=== PATIENT | female | born 1940 | race Caucasian/White ===

== ENCOUNTER → 2016-05-29 | Outpatient (CLI) | payer MEDICARE, OTHER ==
--- NOTE | 2016-05-29 16:04 | BD ---
EXAMINATION TYPE: MG DEXA axial skeleton. DATE OF EXAM: 05/29/2016 12:20 PM COMPARISON: NONE CLINICAL HISTORY: Postmenopausal female Height: 58.5 IN Weight: 145 LBS FRAX RISK QUESTIONS: Alcohol (3 or more units per day): NO Family History (Parent hip fracture): NO Glucocorticoids (More than 3mos): NO (Ex: prednisone, prednisolone, methylprednisolone, dexamethasone, and hydrocortisone). History of Fracture in Adulthood: NO Secondary Osteoporosis: 1. Type 1 Diabetes: NO 2. Hyperthyroidism: NO 3. Menopause before 45: NO 4. Malnutrition: NO 5. Chronic liver disease: NO Rheumatoid Arthritis: NO Current Tobacco Use: NO RISK FACTORS HISTORY OF: Active: YES Diet low in dairy products/other sources of calcium: YES Postmenopausal woman: AGE 49 Take estrogen and/or progesterone medications: NOT NOW How long: AGE 50 - 61 MEDICATIONS: Additional Medications: CALCIUM, VIT D, HIGH BLOOD PRESSURE MEDS, DIABETES MEDS, EXAM MEASUREMENTS: Bone mineral densitometry was performed using the [employer] System. Bone mineral density as measured about the Lumbar spine is: ----- L1-L4(G/cm2): 1.334 T Score Values are as follows: ----- L2: 2.0 ----- L3: 0.8 ----- L4: 0.7 ----- L1-L4: 1.3 Bone mineral density has: Decreased -0.1% since study of: 05/03/2014 Bone mineral density about the R hip (g/cm2): 0.977 Bone mineral density about the L hip (g/cm2): 0.991 T Score values are as follows: -----R Neck: -0.4 -----L Neck: -0.3 -----R Intertrochanter: -0.2 -----L Intertrochanter: 0.3 Bone mineral density has: Decreased -2.4% since study of: 05/03/2014 IMPRESSION: Normal (Values between +1 and -1 indicate normal bone mass) NOTE: T-SCORE=SD OF THE YOUNG ADULT MEAN.
--- NOTE | 2016-05-31 12:27 | MM ---
Reason for exam: screening (asymptomatic). Last mammogram was performed 1 year ago. History: Patient is postmenopausal. Family history of premenopausal breast cancer in maternal cousin at age 35. Benign right mammotome panel of the right breast, February 14, 2007. Took estrogen for 12 years beginning at age 49. Physical Findings: A clinical breast exam by your physician is recommended on an annual basis and results should be correlated with mammographic findings. MG Screening Mammo w CAD Bilateral CC and MLO view(s) were taken. Prior study comparison: May 20, 2015, bilateral MG screening mammo w CAD. May 03, 2014, bilateral MG screening mammo w CAD. March 27, 2013, bilateral digital screening mammo w/CAD. There are scattered fibroglandular densities. Previous mammotome biopsy in the right breast. There is chronic nodularity in the left breast. Benign bilateral secretory calcifications. No significant changes when compared with prior studies. ASSESSMENT: Benign, BI-RAD 2 RECOMMENDATION: Routine screening mammogram of both breasts in 1 year.
== END | disposition home or self-care (01) ==
LOC: RADBDWWP 12:18
PROVIDERS: ATTEND Family Medicine
DX: Z12.31 Encounter for screening mammogram for malignant neoplasm of breast (principal); Z78.0 Asymptomatic menopausal state
CPT/HCPCS: 77080; G0202

== ENCOUNTER → 2018-07-25 | Outpatient (CLI) | payer MEDICARE, OTHER ==
--- NOTE | 2018-07-28 17:18 | BD ---
EXAMINATION TYPE: Axial Bone Density DATE OF EXAM: 07/25/2018 COMPARISON: 05/29/2016 CLINICAL HISTORY: 78-year-old female asymptomatic postmenopausal screening Height: 58 Weight: 144.1 FRAX RISK QUESTIONS: Alcohol (3 or more units per day): no Family History (Parent hip fracture): no Glucocorticoids (More than 3mos): no (Ex: prednisone, prednisolone, methylprednisolone, dexamethasone, and hydrocortisone). History of Fracture in Adulthood: no Secondary Osteoporosis: 1. Type 1 Diabetes: no 2. Hyperthyroidism: no 3. Menopause before 45: no 4. Malnutrition: no 5. Chronic liver disease: no Rheumatoid Arthritis: no Current Tobacco Use: no RISK FACTORS HISTORY OF: Family History of Osteoporosis: no Active: yes Diet low in dairy products/other sources of calcium: no Postmenopausal woman: age 49 Lost more than 2 inches in height since high school: yes MEDICATIONS: metformin, enalapril, amlodipine, bisoprolol Additional History: EXAM MEASUREMENTS: Bone mineral densitometry was performed using the [employer] System. Bone mineral density as measured about the Lumbar spine is: ----- L1-L4(G/cm2): 1.400 T Score Values are as follows: ----- L2: 2.5 ----- L3: 1.2 ----- L4: 1.7 ----- L1-L4: 1.8 Bone mineral density has: increased 5.5 % since study of: 05.29.2016 Bone mineral density about the R hip (g/cm2): 1.031 Bone mineral density about the L hip (g/cm2): 1.013 T Score values are as follows: -----R Neck: 0.0 -----L Neck: -0.2 -----R Total: 1.0 -----L Total: 0.9 Bone mineral density has: increased 4.3 % since study of: 05.29.2016 IMPRESSION: Normal (Values between +1 and -1 indicate normal bone mass). Consider repeating this study in 5 year s or sooner if there is some new clinical indication. NOTE: T-SCORE=SD OF THE YOUNG ADULT MEAN.
--- NOTE | 2018-07-29 13:19 | MM ---
Reason for exam: screening (asymptomatic). Last mammogram was performed 2 years and 2 months ago. History: Patient is postmenopausal. Family history of premenopausal breast cancer in maternal cousin at age 35. Benign right mammotome panel of the right breast, February 14, 2007. Took estrogen for 12 years beginning at age 49. Physical Findings: A clinical breast exam by your physician is recommended on an annual basis and results should be correlated with mammographic findings. MG Screening Mammo w CAD Bilateral CC and MLO view(s) were taken. Prior study comparison: May 31, 2016, bilateral MG screening mammo w CAD. May 20, 2015, bilateral MG screening mammo w CAD. There are scattered fibroglandular densities. Previous mammotome biopsy in the right breast. There is chronic nodularity in the left breast. Bilateral benign secretory calcifications. No significant changes when compared with prior studies. ASSESSMENT: Benign, BI-RAD 2 RECOMMENDATION: Routine screening mammogram of both breasts in 1 year.
== END | disposition home or self-care (01) ==
LOC: RADMAMWWP 13:28
PROVIDERS: ATTEND Family Medicine
DX: Z12.31 Encounter for screening mammogram for malignant neoplasm of breast (principal); M89.9 Disorder of bone, unspecified; Z78.0 Asymptomatic menopausal state
CPT/HCPCS: 77067; 77080

== ENCOUNTER → 2021-01-17 | Outpatient (CLI) | payer MEDICARE, OTHER ==
--- NOTE | 2021-01-17 09:28 | US ---
EXAMINATION TYPE: US abdomen complete DATE OF EXAM: 01/17/2021 COMPARISON: NONE CLINICAL HISTORY: 81-year-old female E80.6 Other disorders of bilirubin metabolism. TECHNIQUE: Multiple sonographic images of the abdomen are obtained. FINDINGS: EXAM MEASUREMENTS: Liver Length: 12.3 cm Gallbladder Wall: 0.2 cm CBD: 1.4 cm Spleen: 11.8 cm Right Kidney: 10.0 x 4.3 x 4.1 cm Left Kidney: 7.6 x 3.8 x 4.2 cm Pancreas: Suboptimal visualization of the pancreatic tail due to shadowing from bowel gas. Liver: dilated intrahepatic ducts Gallbladder: distended at 12.4 cm, no stones seen Evidence for sonographic Dietrich's sign: No CBD: dilated at 1.4 cm Spleen: echogenic focus measuring 0.7 x 0.6 x 0.6 cm, probable calcification versus small hemangioma . Benign etiology is suggested. Right Kidney: No hydronephrosis or masses seen Left Kidney: No hydronephrosis or masses seen, lobular contour. Upper IVC: wnl Abd Aorta: wnl IMPRESSION: Dilated bile duct up to 1.4 cm. Some intrahepatic biliary ductal dilatation is also present as well a s hydropic gallbladder change. Unable to exclude distal bile duct obstruction or ampullary stenosis. Correlate with alkaline phosphatase and bilirubin levels.
== END | disposition home or self-care (01) ==
LOC: RADUSWWP 08:37
PROVIDERS: ATTEND Family Medicine
DX: E80.6 Other disorders of bilirubin metabolism (principal)
CPT/HCPCS: 76700

== ENCOUNTER → 2021-02-24 | Outpatient (CLI) | payer MEDICARE, OTHER ==
--- NOTE | 2021-02-24 13:29 | MR ---
"EXAMINATION TYPE: MR abdomen wo/w con DATE OF EXAM: 02/24/2021 COMPARISON: Ultrasound abdomen January 17, 2021 HISTORY: Abnormal ultrasound and labs. CBD obstruction. CONTRAST: Standard multiplanar, multisequence MRI departmental protocol images were obtained without contrast a nd with 5 mL intravenous Gadavist gadolinium contrast. Imaging performed of the abdomen. Imaging per formed of the abdomen focusing on the liver. FINDINGS: Liver: Liver remains normal in size. No concerning solid or cystic intrahepatic mass identified. Mode rate extrahepatic and intrahepatic biliary dilatation remains present. Gallbladder has distended rafael ins with mild wall thickening focally along the posterior aspect axial image 10 series 1001. Suspect tiny 3 mm gallstone at this level image 11. There is an obstructing 10 mm calculus seen coronal image 13 series 401 and the duodenal ampulla. Common bile duct dilated up to 18 mm Other: Pancreas appears within normal limits. No pancreatic ductal dilatation. Lung bases are clear. Spleen measures upper limits of normal in size at 14.0 cm axial image 29. There is 1.4 cm adjacent sp lenule laterally axial image 55 1501. Some asymmetric diminished size and cortical thinning to the le ft kidney. Finding correlates with recent ultrasound. No abnormal bowel dilatation. No intra-abdomina l ascites. Underlying scoliotic curvature in the spine with multilevel spurring and disc space narrow ing. IMPRESSION: There is a 10 mm calculus in the distal CBD at the level of the duodenal ampulla causing moderate extrahepatic and central intrahepatic biliary dilatation and gallbladder distention. Conside r ERCP for further evaluation and treatment. A Yellow level critical message alert has been initiated for Germán Hamm MD via the [employer] 0 | Critical Results System on 02/24/2021 1:26 PM. This message alert has been sent to Germán Hamm MD via the preferences provided by the clinician for the receipt of Radiology Critical Findings. Dc [employer] ID [id number]."
== END | disposition home or self-care (01) ==
LOC: RADMRIMAIN 11:51
PROVIDERS: ATTEND Family Medicine
DX: K80.50 Calculus of bile duct without cholangitis or cholecystitis without obstruction (principal)
CPT/HCPCS: 74183; A9585

== ENCOUNTER → 2021-03-09 | Outpatient (CLI) | payer MEDICARE, OTHER ==
[2021-03-09 19:01] LABS: Basophils # (A) 0.08 X 10*3/uL (0.00-0.10); Basophils % (A) 1.2 %; Eosinophils # (A) 0.02 X 10*3/uL (0.04-0.35); Eosinophils % (A) 0.3 %; HCT 38.1 % (37.2-46.3); Lymphocytes # (A) 0.73 X 10*3/uL (0.90-5.00); Lymphocytes % (A) 10.9 %; MCH 31.4 pg (27.0-32.0); MCHC 31.5 g/dL (32.0-37.0); MCV 99.7 fL (80.0-97.0); Mean Platelet Volume 11.9 fL (9.5-12.2); Monocytes # (A) 0.69 X 10*3/uL (0.20-1.00); Monocytes % (A) 10.3 %; Neutrophils # (A) 5.14 X 10*3/uL (1.80-7.70); Neutrophils % (A) 76.7 %; Platelet Count 194 X 10*3/uL (140-440); RBC 3.82 X 10*6/uL (4.10-5.20); RDW 13.4 % (11.5-14.5)
[2021-03-09 19:34] LABS: INR 1.14 (0.90-1.11); Prothrombin Time 12.8 sec (9.9-11.9)
[2021-03-09 21:17] LABS: African American GFR (CKD) 60.8 (60.0-200.0); Albumin/Globulin Ratio 1.43 (1.60-3.17); Anion Gap 15.1 mmol/L (10.00-18.00); BUN/Creat Ratio 16.4 Ratio (12.00-20.00); Blood Urea Nitrogen 16.4 mg/dL (9.0-27.0); Carbon Dioxide 22.9 mmol/L (20.0-27.5); Globulin 2.8 g/dL (1.6-3.3); Non-African American GFR(CKD) 52.4 (60.0-200.0); Potassium 3.5 mmol/L (3.5-5.5); Total Bilirubin 5.6 mg/dL (0.30-1.20); Total Protein 6.8 g/dL (6.2-8.2)
== END | disposition home or self-care (01) ==
LOC: LABWHC1 11:10
PROVIDERS: ATTEND Internal Medicine Gastroenterology
DX: K83.1 Obstruction of bile duct (principal)
CPT/HCPCS: 36415; 80053; 85025; 85610

== ENCOUNTER 2021-03-17 08:49 | Day surgery (SDC) | payer MEDICARE, OTHER ==
[2021-03-15 11:41] VITALS: BMI 24.6
[2021-03-17] MEDS ORDERED: LACTATED RINGERS 1,000 ML IV SCH (09:11)
[2021-03-17 09:26] VITALS: TEMP 97.2
[2021-03-17] MEDS ORDERED: LACTATED RINGERS 1,000 ML IV ONE (09:26)
[2021-03-17 09:42] LABS: Glucose,Whole Blood 169 mg/dL (75-99)
[2021-03-17 09:58] LABS: Basophils % (A) 0 %; Eosinophils % (A) 0 %; HCT 40.3 % (34.0-46.0); HGB 13.2 gm/dL (11.4-16.0); Lymphocytes # (A) 0.3 k/uL (1.0-4.8); Lymphocytes % (A) 2 %; MCH 32.7 pg (25.0-35.0); MCHC 32.6 g/dL (31.0-37.0); Mean Platelet Volume 8.4; Monocytes # (A) 0.6 k/uL (0-1.0); Monocytes % (A) 4 %; Neutrophils # (A) 14.5 k/uL (1.3-7.7); Neutrophils % (A) 93 %; Platelet Count 203 k/uL (150-450); RBC 4.03 m/uL (3.80-5.40); RDW 13.9 % (11.5-15.5); WBC 15.6 k/uL (3.8-10.6)
[2021-03-17 10:12] LABS: Albumin 3.9 g/dL (3.5-5.0); Calcium 9.4 mg/dL (8.4-10.2); Potassium 3.5 mmol/L (3.5-5.1); Total Bilirubin 6.3 mg/dL (0.2-1.3); Total Protein 7.2 g/dL (6.3-8.2)
[2021-03-17] MEDS ORDERED: INDOMETHACIN 50MG SUPPOSITORY RECTAL ONE (10:40)
[2021-03-17] MEDS ORDERED: LEVOFLOXACIN 500MG-D5W PMX 500 MG in DEXTROSE/WATER 1 100ML.BAG IVPB ONE (10:40)
[2021-03-17 10:43] LABS: INR 1.4 (<1.2); Prothrombin Time 14.4 sec (9.0-12.0)
[2021-03-17] MEDS ORDERED: KETAMINE 10 MG/ML 20 ML VIAL ONE (12:02)
[2021-03-17] MEDS ORDERED: LIDOCAINE 1% INJ 10MG/ML (20 ML MDV) ONE (12:02)
[2021-03-17] MEDS ORDERED: GLYCOPYRROLATE 0.2 MG/ML 2 ML VIAL ONE (12:02)
[2021-03-17] MEDS ORDERED: PROPOFOL 10 MG/ML 20 ML VIAL IV ONE (12:02)
[2021-03-17] MEDS ORDERED: IOPAMIDOL-300 50ML BTL INJ ONE (12:33)
--- NOTE | 2021-03-17 12:41 | P.PCN ---
Date of Procedure: 03/17/21 Procedure(s) Performed: Brief history: Patient is a 81 year-old pleasant lady scheduled for an ERCP as part of evaluation of abdominal pain and elevated serum transaminases and jaundice for the last 4 weeks. She was noted to have bilirubin of 6.2 and elevated serum transaminases in the range of 200s. An MRI of the abdomen did show evidence of dilated intra-and extrahepatic biliary system with a 1 cm filling defect in the distal common bile duct. She is scheduled for an ERCP for CBD stone extraction. Procedure performed: ERCP with biliary sphincterotomy and balloon stone extraction Preoperative diagnoses: Obstructive jaundice/CBD stone IV sedation per anesthesia: Procedure: After informed consent was obtained from the patient and after the risks benefits and complications including bleeding perforation and pancreatitis explained in detail the patient was brought into the endoscopy unit. The patient was placed in prone position and IV conscious sedation was administered by anesthesia under continuous monitoring. The Olympus side-viewing duodenoscope was then inserted into the mouth and esophagus intubated without any difficulty. The scope was gradually advanced into the stomach and duodenum. The major papilla was identified without any difficulty. Initial cannulation resulted in the base of the pancreatic duct that appeared normal. Subsequent cannulation resulted in opacification of the common bile and appeared dilated measuring 1.5 cm in diameter. There was a 1 cm filling defect noted in the proximal common bile duct. There was mild intrahepatic biliary ductal dilation noted. At this time the catheter was exchanged over a guidewire with a biliary sphincterotome which was passed into the distal common bile duct. A biliary stent enterotomy was performed at 11 o'clock position and was extended to 1 cm in length. Following this 11.5 mm balloon was passed over the guidewire into the proximal CBD and was gently withdrawn and the CBD stone was extracted without any difficulty. Following the stone extraction there was some bleeding noted the stent enterotomy site which subsequently resolved. This maneuver was repeated 2 more times and no other stones were seen exiting the ampulla. An occlusion cholangio-was performed and no filling defects were seen. Patient tolerated the procedure well. Impression: 1. Normal appearing pancreatic duct 2. Dilated common bile duct measuring 1.5 cm in diameter with a 1 cm filling defect in the proximal CBD, status post biliary sphincterotomy followed by balloon stone extraction as described above Recommendations: The findings of this examination were discussed with the patient as well as a family. She'll be observed in the recovery for 2 hours and if she remains stable she'll be discharged , with outpatient follow-up in 2 weeks. She will be started on clear liquid diet.
--- NOTE | 2021-03-17 12:48 | FL ---
EXAMINATION TYPE: FL ERCP HISTORY: Fluoroscopy time Impression: 1. Fluoroscopy support provided to the referring physician.
[2021-03-17 13:05] VITALS: RESP 16
[2021-03-17 13:35] VITALS: BP 125/76; PULSE 96
== END 2021-03-17 14:00 | disposition home or self-care (01) ==
LOC: ORWHC2ENDO 08:49
PROVIDERS: ATTEND Internal Medicine Gastroenterology
DX: K80.50 Calculus of bile duct without cholangitis or cholecystitis without obstruction (principal); I10 Essential (primary) hypertension; E11.9 Type 2 diabetes mellitus without complications; Z79.899 Other long term (current) drug therapy; Z79.84 Long term (current) use of oral hypoglycemic drugs
CPT/HCPCS: 80053; 85025; 85610; 74330; 43264; 43262; J1956; J2001; J2704; Q9967

== ENCOUNTER → 2021-04-18 | Outpatient (CLI) | payer MEDICARE, OTHER ==
[2021-04-18 18:34] LABS: African American GFR (CKD) 50.8 (60.0-200.0); Albumin 4.6 g/dL (3.8-4.9); Albumin/Globulin Ratio 1.87 (1.60-3.17); Anion Gap 14.8 mmol/L (10.00-18.00); BUN/Creat Ratio 25.34 Ratio (12.00-20.00); Blood Urea Nitrogen 29.4 mg/dL (9.0-27.0); Calcium 9.9 mg/dL (8.7-10.3); Carbon Dioxide 23.3 mmol/L (20.0-27.5); Globulin 2.5 g/dL (1.6-3.3); Non-African American GFR(CKD) 43.8 (60.0-200.0); Potassium 4.6 mmol/L (3.5-5.5); Total Bilirubin 0.9 mg/dL (0.30-1.20); Total Protein 7.1 g/dL (6.2-8.2)
[2021-04-18 18:38] LABS: Basophils # (A) 0.07 X 10*3/uL (0.00-0.10); Eosinophils % (A) 1.4 %; HCT 44.2 % (37.2-46.3); HGB 14.1 g/dL (12.0-15.0); Lymphocytes # (A) 1.39 X 10*3/uL (0.90-5.00); Lymphocytes % (A) 19.9 %; MCH 30.4 pg (27.0-32.0); MCHC 31.9 g/dL (32.0-37.0); MCV 95.3 fL (80.0-97.0); Mean Platelet Volume 11.1 fL (9.5-12.2); Monocytes # (A) 0.71 X 10*3/uL (0.20-1.00); Monocytes % (A) 10.2 %; Neutrophils % (A) 67.2 %; Platelet Count 186 X 10*3/uL (140-440); RBC 4.64 X 10*6/uL (4.10-5.20); RDW 12.2 % (11.5-14.5); WBC 6.99 X 10*3/uL (4.50-10.00)
== END | disposition home or self-care (01) ==
LOC: LABWHC1 13:12
PROVIDERS: ATTEND Internal Medicine Gastroenterology
DX: K80.41 Calculus of bile duct with cholecystitis, unspecified, with obstruction (principal)
CPT/HCPCS: 36415; 80053; 85025

== ENCOUNTER 2022-03-27 11:07 | Emergency (ER) | payer MEDICARE, OTHER ==
[2022-03-27 11:45] VITALS: RESP 18; TEMP 98.1
--- NOTE | 2022-03-27 12:44 | XR ---
EXAMINATION TYPE: XR ankle complete 3 views LT, XR foot complete 3 views LT DATE OF EXAM: 03/27/2022 Comparison: None Clinical History: 82-year-old female pain after fall Findings: Ankle: Circumferential soft tissue swelling at the ankle. Ankle mortise is congruent with preservation of th e distal tibia-fibula overlap. There is a small joint effusion and small delineation to the Achilles tendon. Subtalar joint is aligned. No acute fracture seen. Foot: Marked dorsal soft tissue swelling. Questionable lucency involving the base of the second metatarsal and distal lateral margin of the medial cuneiform on the AP view. Bony bunion. No midfoot malalignmen t. Impression: 1. Ankle: Generalized soft tissue swelling. No acute osseous amount is seen. 2. Foot: Marked dorsal soft tissue swelling. There is osteopenia limiting assessment. Questionable pricila cency at the distal lateral aspect of the medial cuneiform and at the second metatarsal base. Given t he degree of soft tissue swelling, if there is point tenderness here, unable to exclude subtle nondis placed fractures. 3. Bony bunion.
--- NOTE | 2022-03-27 13:41 | ED ---
Lower Extremity Injury HPI - General Chief Complaint: Extremity Injury, Lower Stated Complaint: Fall, L. Foot Injury Time Seen by Provider: 03/27/22 11:59 Source: patient Mode of arrival: ambulatory Limitations: no limitations - History of Present Illness Initial Comments: Patient is an 82-year-old female who presents to the emergency department with a chief complaint of left foot pain. Patient had a fall on [place] causing pain in the top of her left foot near her first three toes. Patient states she initially had a lot of pain and swelling which has been improving. She has been taking aspirin occasionally for pain. Her family saw her over the holiday and wanted evaluation. She denies numbness and tingling. She has been walking on the left foot without limitation. - Related Data Home Medications Medication Instructions Recorded Confirmed Bisoprolol-Hctz 10-6.25 mg [Ziac 1 each PO DAILY 03/21/15 03/15/21 10-6.25] Enalapril [Vasotec] 10 mg PO BID-W/MEALS 03/21/15 03/15/21 amLODIPine [Norvasc] 5 mg PO DAILY 03/21/15 03/15/21 metFORMIN HCL [Glucophage] 1,000 mg PO BID-W/MEALS 03/21/15 03/15/21 Cholecalciferol [Vitamin D3 (25 100 mcg PO BID-W/MEALS 03/15/21 03/15/21 Mcg = 1000 Iu)] Allergies Allergy/AdvReac Type Severity Reaction Status Date / Time No Known Allergies Allergy Verified 03/27/22 11:45 Review of Systems ROS Statement: Those systems with pertinent positive or pertinent negative responses have been documented in the HPI. ROS Other: All systems not noted in ROS Statement are negative. Past Medical History Past Medical History: Diabetes Mellitus, Hyperlipidemia, Hypertension Additional Past Medical History / Comment(s): glaucoma, History of Any Multi-Drug Resistant Organisms: None Reported Past Surgical History: Hysterectomy Additional Past Surgical History / Comment(s): CATARACT- RIGHT EYE Past Anesthesia/Blood Transfusion Reactions: No Reported Reaction Past Psychological History: No Psychological Hx Reported Smoking Status: Never smoker Past Alcohol Use History: None Reported Past Drug Use History: None Reported - Past Family History Mother Family Medical History: No Reported History General Exam Limitations: no limitations General appearance: alert, in no apparent distress Head exam: Present: atraumatic, normocephalic, normal inspection Eye exam: Present: normal appearance, PERRL, EOMI. Absent: scleral icterus, conjunctival injection, periorbital swelling Respiratory exam: Present: normal lung sounds bilaterally. Absent: respiratory distress, wheezes, rales, rhonchi, stridor Cardiovascular Exam: Present: regular rate, normal rhythm, normal heart sounds. Absent: systolic murmur, diastolic murmur, rubs, gallop, clicks Left Foot/Toe exam: Present: full ROM, tenderness, swelling (dorsal foot distally and medially), ecchymosis (minimal ). Absent: deformity, crepitus, erythema, tenderness at base of 5th metatarsal Neurovascular tendon exam: Present: no vascular compromise. Absent: foot drop Gait: observed and normal Neurological exam: Present: alert, oriented X3, CN II-XII intact Psychiatric exam: Present: normal affect, normal mood Skin exam: Present: warm, dry, intact, normal color. Absent: rash Course Vital Signs 03/27/22 03/27/22 11:42 13:52 Temperature 98.1 F Pulse Rate 85 76 Respiratory 18 18 Rate Blood Pressure 179/87 181/82 O2 Sat by Pulse 96 98 Oximetry Medical Decision Making - Medical Decision Making Was pt. sent in by a medical professional or institution? @ -No Did you speak to anyone other than the patient for history? @ -Son-in-law provided additional information Did you review nursing and triage notes? @ -Yes Were old charts reviewed? @ -No Differential Diagnosis? @ -Foot fracture, foot sprain, contusion EKG interpreted by me (3pts min.)? @ -[none] X-rays interpreted by me (1pt min.)? @ Left foot xray showed a marked dorsal soft tissue swelling. There is a questionable lucency at the distal lateral aspect of the medial cuneiform and the second metatarsal base, CT interpreted by me (1pt min.)? @ -[none] U/S interpreted by me (1pt. min.)? @ -[none] What testing was considered but not performed? (CT, X-rays, U/S, labs)? Why? @ -No What meds were considered but not given? Why? @ -Consider getting pain meds however patient declined Did you discuss the management of the patient with other professionals? @ -No Did you reconcile home meds? @ -NA Was smoking cessation discussed for >3mins.? @ -No Was critical care preformed (if so, how long)? @ -No Were there social determinants of health that impacted care today? How? (Homelessness, low income, unemployed, alcoholism, drug addiction, transportation, low edu. Level, literacy, decrease access to med. care, [facility], rehab)? @ -No Was there de-escalation of care discussed even if they declined? (Discuss DNR or withdrawal of care, Hospice)? @ -No What co-morbidities impacted this encounter? (DM, HTN, Smoking, COPD, CAD, Cancer, CVA, Hep., AIDS, mental health diagnosis, sleep apnea, morbid obesity)? @ -NA Was patient admitted / discharged? @ -Left foot x-ray showed questionable fracture however patient did not have any point tenderness, swelling, erythema, or ecchymosis in this region. Given pain and swelling is improvement, splint not necessary at this time. Foot was wrapped in Ean wrap and patient was placed in post-op shoe. She will continue conservative management at home and follow up with primary care provider. If pain does not get better she may need repeat x-ray, Undiagnosed new problem with uncertain prognosis? @ -Yes Drug Therapy requiring intensive monitoring for toxicity (Heparin, Nitro, Insulin, Cardizem)? @ -No Were any procedures done? @ -No Diagnosis/symptom? @ -left foot injury, left foot pain, left foot swelling Acute, or Chronic, or Acute on Chronic? @ -acute Uncomplicated (without systemic symptoms) or Complicated (systemic symptoms)? @ -Uncomplicated Side effects of treatment? @ -NA Exacerbation, Progression, or Severe Exacerbation] @ -NA Poses a threat to life or bodily function? @ -No Dr. Lynn is my attending. Disposition Clinical Impression: Injury of left foot, Left foot pain, Swelling of left foot Disposition: HOME SELF-CARE Condition: Good Instructions (If sedation given, give patient instructions): Foot Contusion (ED), Foot Sprain (ED) Additional Instructions: Rest, ice, elevate injury. Please take anti-inflammatory medications which will also reduce swelling and help pain. Follow-up with primary care provider in one to 2 days. If symptoms persist, you may need repeat x-ray. Please talk with primary care provider about high blood pressure in the emergency department today. Return to the emergency department experience new, concerning, or worsening symptoms. Is patient prescribed a controlled substance at d/c from ED?: No Referrals: Germán Hamm MD [Primary Care Provider] - 1-2 days Time of Disposition: 13:41
[2022-03-27 13:58] VITALS: BP 181/82; PULSE 76
== END 2022-03-27 14:06 | disposition home or self-care (01) ==
LOC: EC 11:07
DX: S99.922A Unspecified injury of left foot, initial encounter (principal); I10 Essential (primary) hypertension; E11.9 Type 2 diabetes mellitus without complications; Z79.899 Other long term (current) drug therapy; W01.0XXA Fall on same level from slipping, tripping and stumbling without subsequent striking against object, initial encounter
CPT/HCPCS: 99283

== ENCOUNTER → 2024-05-05 | Outpatient (CLI) | payer MEDICARE, OTHER ==
--- NOTE | 2024-05-05 13:00 | XR ---
EXAMINATION TYPE: XR chest 2V DATE OF EXAM: 05/05/2024 12:26 PM COMPARISON: 09/06/2014 CLINICAL INDICATION: Female, 84 years old with history of Z11.1 ENCOUNTER FOR SCREENING FOR RESPIRATO RY TUBE, TECHNIQUE: XR chest 2V view(s) obtained. FINDINGS: The heart size is normal. The pulmonary vasculature is normal. The lungs are clear. Tracheobronchial tree as visualized is unremarkable IMPRESSION: 1. No acute pulmonary process. [facility], , 05/05/2024 12:58 PM
== END | disposition home or self-care (01) ==
LOC: RADXRMAIN 11:31
PROVIDERS: ATTEND Family Medicine
DX: Z11.1 Encounter for screening for respiratory tuberculosis (principal)
CPT/HCPCS: 71046; 86480